=== PATIENT | female | born 1970 | race African-American/Black ===

== ENCOUNTER 2016-11-17 08:28 | Emergency (ER) | payer MEDICAID ==
[~2016-11-17] VITALS: Ht 160 cm; Wt 120.0 kg
[~2016-11-17 08:28] MED LIST: CYCL-36 PO; DIPH1TAB36 PO; IBUP-238 PO; RANI150 PO; ULTR50TA PO; anti-inflammatory; muscle relaxer
[2016-11-17 08:30] VITALS: BP 156/80; PULSE 84; RESP 16; TEMP 98.1; O2SAT 99
--- NOTE | 2016-11-17 08:42 | PD ---
HPI Chief Complaint: Back/ Neck Pain or Injury Time Seen by Provider: 08:42 Travel History International Travel<30 days: No Contact w/Intl Traveler<30days: No Traveled to known affect area: No History of Present Illness HPI 46-year-old female came to the emergency room with history of neck pain radiating down her left shoulder. Patient had a work related injury few months ago where she did physical therapy and was feeling better. She was doing fine and back to work. 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 Patient started hurting about 4 days ago and since then the pain has been increasing in severity. Today it is 8 out of 10. Moving her neck or arm hurts. No history of fever or chills. No history of photophobia. She did not reinjure her back or neck this time. She also describes the pain going down her mid back along the spine. She has been taking Tylenol at home without much relief. [facility] Past Medical History Narrative Medical List of her past medical, surgical, social and family history was reviewed from the nursing note. Medical History: Denies Significant Hx Diabetes: Yes (hx gestational, being tested for this now) Diminished Hearing: No GERD: Yes Immunizations Current: Yes ?: Not LMP: 11/12/2016 Tubal Ligation: Yes Past Surgical History Abdominal Surgery: Yes Section: Yes Gynecologic Surgery: Yes () Social History Alcohol Use: No Tobacco Use: No Substance Use: No Allergies-Medications (Allergen,Severity, Reaction): Coded Allergies: Aspirin (Verified Allergy, Intermediate, FLU SYMPTOMS, 11/17/16) Comments List of her allergies reviewed from the nursing note. Reported Meds & Prescriptions Reported Meds & Active Scripts Active Flexeril (Cyclobenzaprine HCl) 5 Mg Tab 5 Mg PO TID Lortab (Hydrocodone-Acetaminophen) 5-325 Mg Tab 1 Tab PO Q6H PRN Ibuprofen 600 Mg Tab 600 Mg PO Q6H PRN Narrative Medication List of her home medications reviewed from the nursing note Review of Systems Except as stated in HPI: all other systems reviewed are Neg Physical Exam Narrative GENERAL: Awake, alert, obese, mild distress SKIN: Focused skin assessment warm/dry. HEAD: Atraumatic. Normocephalic. EYES: Pupils equal and round. No scleral icterus. No injection or drainage. ENT: No nasal bleeding or discharge. Mucous membranes pink and moist. NECK: Trachea midline. No JVD. CARDIOVASCULAR: Regular rate and rhythm. No murmur appreciated. RESPIRATORY: No accessory muscle use. Clear to auscultation. Breath sounds equal bilaterally. GASTROINTESTINAL: Abdomen soft, non-tender, nondistended. Hepatic and splenic margins not palpable. MUSCULOSKELETAL: No obvious deformities. No clubbing. No cyanosis. No edema. Tenderness along the paraspinal area starting from neck down to the thoracic spine with some spasm. NEUROLOGICAL: Awake and alert. No obvious cranial nerve deficits. Motor grossly within normal limits. Normal speech. PSYCHIATRIC: Appropriate mood and affect; insight and judgment normal. Data Data Last Documented VS Vital Signs Date Time Temp Pulse Resp B/P Pulse Ox O2 Delivery O2 Flow Rate FiO2 11/17/16 08:30 98.1 84 16 156/80 99 Orders Orphenadrine Inj (Norflex Inj) (11/17/16 09:00) Ketorolac Inj (Toradol Inj) (11/17/16 09:00) Morphine Inj (Morphine Inj) (11/17/16 09:00) [facility] Medical Decision Making Medical Screen Exam Complete: Yes Emergency Medical Condition: Yes Medical Record Reviewed: Yes Differential Diagnosis Cervical radiculopathy, musculoskeletal pain, acute on chronic neck pain Narrative Course 9:37 AM since there has not been any recurrent injury I have not done any imaging studies. Patient was given IM Toradol, Norflex and morphine. I just went back and reassessed and she says her pain is slowly easing off and she feels better. She has called her son to come and pick her up. I will discharge her home. I have recommended her to go back to the physical therapist. Procedures EKG Prior to Arrival: No Diagnosis Primary Impression: Cervical radiculopathy Additional Impression: Cervical paraspinal muscle spasm Referrals: Primary Care Physician Additional Instructions: Please return to the ER if the condition worsens or any other new concerns. Otherwise follow-up with your primary care. He should get a referral back to your physical therapist since he need to go back to physical therapy in order to prevent this from worsening. Get bedrest. Apply cold compresses alternating with warm compresses on the affected part. He can eventually gravitated to words either cold or hot compress depending on which suits better for you. Take the medications as per the prescription direction. Do not drive or operate heavy machinery while on these medications since it'll make you groggy. Med/Other Pt SpecificInfo: Prescription(s) given Scripts Cyclobenzaprine (Flexeril)5 Mg Tab5 Mg PO TID #15 TAB Ref 0 Prov:Kentrell Duarte MD 11/17/16 Hydrocodone-Acetaminophen (Lortab)5-325 Mg Tab1 Tab PO Q6H PRN (PAIN) #10 TAB Ref 0 Prov:Kentrell Duarte MD 11/17/16 Ibuprofen 600 Mg [id number] Mg PO Q6H PRN (Pain/Inflammation) #40 TAB Ref 0 Prov:Kentrell Duarte MD 11/17/16 Disposition: 01 DISCHARGE HOME Condition: Stable Kentrell Duarte MD Nov 17, 2016 08:42
[2016-11-17] MEDS ORDERED: KETOROLAC TROMETHAMINE 60 MG/2 ML (IM) VIAL IM ONE (09:00)
[2016-11-17] MEDS ORDERED: ORPHENADRINE INJ 60 MG/2 ML AMP IM ONE (09:00)
[2016-11-17] MEDS ORDERED: MORPHINE SULFATE 8 MG/ML INJ IM ONE (09:00)
[2016-11-17] MEDS ORDERED: CYCL5TAB PO (09:40)
[2016-11-17] MEDS ORDERED: IBUP-232 PO (09:40)
[2016-11-17] MEDS ORDERED: HYDR-3533 PO (09:40)
== END 2016-11-17 10:01 | disposition home or self-care (01) ==
LOC: PHED 08:28
DX: M54.12 Radiculopathy, cervical region (principal); M62.830 Muscle spasm of back
CPT/HCPCS: 96372; 99284; J1885; J2270; J2360

== ENCOUNTER 2016-11-22 11:06 | Emergency (ER) | payer OTHER, MEDICAID ==
[~2016-11-22] VITALS: Ht 160 cm; Wt 119.5 kg
[~2016-11-22 11:06] MED LIST changes: -CYCL-36 PO; +CYCL5TAB PO; -DIPH1TAB36 PO; +HYDR-3533 PO; +IBUP-232 PO; -IBUP-238 PO; -RANI150 PO; -ULTR50TA PO; -anti-inflammatory; -muscle relaxer
[2016-11-22 11:25] VITALS: BP 149/81; PULSE 97; RESP 16; TEMP 98; O2SAT 98
--- NOTE | 2016-11-22 11:36 | PD ---
HPI Chief Complaint: Back/ Neck Pain or Injury Time Seen by Provider: 11:36 Travel History International Travel<30 days: No Contact w/Intl Traveler<30days: No Traveled to known affect area: No History of Present Illness HPI 46-year-old female presents the emergency department with recurrent right posterior shoulder pain, spasm, with radicular symptoms into the left arm and hand. Patient has been seen for this on November 14 and treated with Toradol, muscle relaxant, ibuprofen, and Lortab. 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 Pain is localized to the left upper back/lateral shoulder along the scapula. She describes numbness and tingling in the left hand and forearm which is worse at night. She denies weakness. Pain is currently a 9 out of 10. It is worse with movement and with palpation to the area. She states she is allergic to aspirin but has taken ibuprofen and Toradol the past. PFSH Past Medical History Medical History: Denies Significant Hx Diabetes: Yes (hx gestational, being tested for this now) Diminished Hearing: No GERD: Yes Immunizations Current: Yes Tetanus Vaccination: > 5 Years Influenza Vaccination: No ?: Not LMP: 1 week ago Tubal Ligation: Yes Past Surgical History Abdominal Surgery: Yes Section: Yes Gynecologic Surgery: Yes () Social History Alcohol Use: No Tobacco Use: No Substance Use: No Allergies-Medications (Allergen,Severity, Reaction): Coded Allergies: Aspirin (Verified Allergy, Intermediate, FLU SYMPTOMS, 11/22/16) Reported Meds & Prescriptions Reported Meds & Active Scripts Active Tramadol (Tramadol HCl) 50 Mg Tab 50 Mg PO Q6H PRN Prednisone 20 Mg Tab 20 Mg PO BID Orphenadrine ER 12 HR (Orphenadrine Citrate) 100 Mg Tab 100 Mg PO Q12HR Flexeril (Cyclobenzaprine HCl) 5 Mg Tab 5 Mg PO TID Lortab (Hydrocodone-Acetaminophen) 5-325 Mg Tab 1 Tab PO Q6H PRN Ibuprofen 600 Mg Tab 600 Mg PO Q6H PRN Review of Systems Except as stated in HPI: all other systems reviewed are Neg General / Constitutional: No: Fever Eyes: No: Visual changes HENT: No: Headaches Cardiovascular: No: Chest Pain or Discomfort Respiratory: No: Shortness of Breath Gastrointestinal: No: Abdominal Pain Genitourinary: No: Dysuria Musculoskeletal: Positive: Myalgias, Limited ROM, Pain (see history present illness) Skin: No Rash Neurologic: No: Weakness Psychiatric: No: Depression Endocrine: No: Polydipsia Hematologic/Lymphatic: No: Easy Bruising Physical Exam Narrative GENERAL: Moderately obese female in mild to moderate distress. SKIN: Warm and dry. Normal color. Normal turgor. No rash. HEAD: Atraumatic. Normocephalic. EYES: Pupils equal and round. No scleral icterus. No injection or drainage. ENT: No nasal bleeding or discharge. Mucous membranes pink and moist. Pharynx is normal. Airway is patent. NECK: Trachea midline. No bony tenderness or step-off. No significant soft tissue tenderness to the cervical spine or scalenes. CARDIOVASCULAR: Regular rate and rhythm. RESPIRATORY: No accessory muscle use. Clear to auscultation. Breath sounds equal bilaterally. GASTROINTESTINAL: Abdomen soft, non-tender, nondistended. Hepatic and splenic margins not palpable. MUSCULOSKELETAL: Extremities without clubbing, cyanosis, or edema. No obvious deformities. Patient has point tenderness with muscle spasm along the left lateral scapula with reproduction of her symptoms. Pain is worse with motion of the shoulder but not in the joint itself. Pain is localized to the soft tissues with palpable spasm noted. Patient has negative Tinel sign in both the left ulnar and carpal tunnel region. 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 Patient describes tingling and numbness in the left hand but has normal sensation by exam. Capillary refill is brisk in the left hand. NEUROLOGICAL: Awake and alert. No obvious cranial nerve deficits. Motor grossly within normal limits. Five out of 5 muscle strength in the arms and legs. Normal speech. PSYCHIATRIC: Appropriate mood and affect; insight and judgment normal. Data Data Last Documented VS Vital Signs Date Time Temp Pulse Resp B/P Pulse Ox O2 Delivery O2 Flow Rate FiO2 11/22/16 11:25 98.0 97 16 149/81 98 Orders Ketorolac Inj (Toradol Inj) (11/22/16 11:45) [facility] Medical Decision Making Medical Screen Exam Complete: Yes Emergency Medical Condition: Yes Medical Record Reviewed: Yes Differential Diagnosis Left shoulder spasm. Brachial plexus spasm. Numbness of the brachial plexus secondary to muscle spasm. Narrative Course Patient is medically stable at time of exam. Radiographic imaging is not felt warranted based on the patient's history and physical. I do feel this is a Worker's Comp. type issue with recurrent motion being a cause. Patient is given Toradol 60 mg IM. Patient will be placed on prednisone 20 mg twice a day 7 days. Patient is started on Norflex 100 mg twice a day 7 days. Patient is given tramadol 50 mg one every 6 hours when necessary pain. Patient is to follow-up with her primary care physician and hopefully be referred to physical therapy. Worker's Comp. forms is completed. Patient can return if worsening symptoms develop as needed. Diagnosis Primary Impression: Cervical radiculopathy Additional Impression: Muscle spasm of left shoulder area Referrals: Primary Care Physician Patient Instructions: General Instructions Additional Instructions: Radiographic imaging is not felt warranted based on the patient's history and physical. I do feel this is a Worker's Comp. type issue with recurrent motion being a cause. Patient is given Toradol 60 mg IM. Patient will be placed on prednisone 20 mg twice a day 7 days. Patient is started on Norflex 100 mg twice a day 7 days. Patient is given tramadol 50 mg one every 6 hours when necessary pain. Patient is to follow-up with her primary care physician and hopefully be referred to physical therapy. Worker's Comp. forms is completed. Patient can return if worsening symptoms develop as needed. Med/Other Pt SpecificInfo: Prescription(s) given Scripts Tramadol 50 Mg Tab50 Mg PO Q6H PRN (PAIN) #20 TAB Prov:Christiano Nova MD 11/22/16 Prednisone 20 Mg Tab20 Mg PO BID #14 TAB Prov:Christiano Nova MD 11/22/16 Orphenadrine ER 12 HR 100 Mg [id number] Mg PO Q12HR #20 TAB Prov:Christiano Nova MD 11/22/16 Disposition: 01 DISCHARGE HOME Condition: Stable Reinaldo Hauser Nov 22, 2016 11:36
[2016-11-22] MEDS ORDERED: KETOROLAC TROMETHAMINE 60 MG/2 ML (IM) VIAL IM ONE (11:45)
[2016-11-22] MEDS ORDERED: TRAM50TA PO (12:00)
[2016-11-22] MEDS ORDERED: PRED20 PO (12:00)
[2016-11-22] MEDS ORDERED: ORPH100T PO (12:00)
== END 2016-11-22 12:30 | disposition home or self-care (01) ==
LOC: PHEFT 11:06
DX: M54.12 Radiculopathy, cervical region (principal); M62.838 Other muscle spasm; X50.3XXA Overexertion from repetitive movements, initial encounter; Y93.E9 Activity, other interior property and clothing maintenance; Y99.0 Civilian activity done for income or pay
CPT/HCPCS: 96372; 99284; J1885

== ENCOUNTER 2016-12-28 17:20 | Emergency (ER) | payer MEDICAID, OTHER ==
[~2016-12-28] VITALS: Ht 160 cm; Wt 114.3 kg
[~2016-12-28 17:20] MED LIST changes: +ORPH100T PO; +PRED20 PO; +TRAM50TA PO
[2016-12-28 18:00] VITALS: BP 179/101; PULSE 112; RESP 16; TEMP 98.3; O2SAT 100
[2016-12-28] MEDS ORDERED: INSULIN HUMAN REGULAR 1,000 UNITS/10 ML VIAL SQ ONE (18:30)
[2016-12-28] MEDS ORDERED: SODIUM CHLOR 0.9% 1000 ML INJ 1,000 ML IV ONE ×2 (18:30→21:00)
[2016-12-28 18:43] LABS: POTASSIUM 4.2 MEQ/L (3.5-5.1)
[2016-12-28 18:46] LABS: BICARBONATE 23.2 MEQ/L (21.0-32.0)
[2016-12-28 18:48] LABS: AUTOMATED NEUTROPHIL # 6.4 TH/MM3 (1.8-7.7); BASOPHIL % 0.4 % (0.0-2.0); EOSINOPHIL # 0.1 TH/MM3 (0-0.4); EOSINOPHIL % 0.7 % (0.0-4.0); HEMATOCRIT 32.9 % (35.0-46.0); LYMPHOCYTE # 3.7 TH/MM3 (1.0-4.8); MEAN CELL VOLUME 63.6 FL (80.0-100.0); MEAN CORPUSCULAR HEMOGLOBIN 19.6 PG (27.0-34.0); MEAN CORPUSCULAR HGB CONC 30.8 % (32.0-36.0); MONO % 7.9 % (0.0-8.0); PLATELET COUNT 243 TH/MM3 (150-450); RED BLOOD COUNT 5.17 MIL/MM3 (4.00-5.30); RED CELL DISTRIBUTION WIDTH 17.4 % (11.6-17.2); WHITE BLOOD COUNT 11.1 TH/MM3 (4.0-11.0)
[2016-12-28 18:51] LABS: HEMO FLAGS AUTO DIFF
[2016-12-28 19:09] LABS: BETA-HYDROXYBUTYRATE 0.98 MMOL/L (0.00-0.39)
[2016-12-28 19:26] LABS: PLATELET ESTIMATE SMEAR NORMAL (NORMAL); PLATELET MORPHOLOGY NORMAL (NORMAL); SCAN/DIFF AUTO DIFF CONFIRMED
[2016-12-28 19:35] VITALS: BP 130/78; PULSE 95; RESP 16; O2SAT 100
--- NOTE | 2016-12-28 19:36 | RADRPT ---
EXAM DATE/TIME: 12/28/2016 18:57 [place] COMPARISON: No previous studies available for comparison. INDICATIONS : Flu symptoms for several days. High blood sugar today. MEDICAL HISTORY : None. SURGICAL HISTORY : None. ENCOUNTER: Initial ACUITY: 3 days PAIN SCORE: 0/10 LOCATION: Bilateral chest FINDINGS: PA and lateral views of the chest demonstrate the lungs to be symmetrically aerated without evidence of mass, infiltrate or effusion. The cardiomediastinal contours are unremarkable. Osseous structure s are intact. CONCLUSION: 1. No active disease. Mild scoliosis. Al Mendiola MD on December 28, 2016 at 19:34 Board Certified Radiologist. This report was verified electronically.
[2016-12-28 19:49] LABS: GLUCOSE,URINE 1000 OR GREATER mg/dL (NEG); KETONE, URINE 15 mg/dL (NEG); NITRITE,URINE NEG (NEG); PH, URINE 5.5 (5.0-8.5)
[2016-12-28 19:54] LABS: BLOOD, URINE TRACE (NEG)
[2016-12-28 19:57] LABS: URINE COLOR STRAW (YELLW/STRAW)
[2016-12-28 19:58] LABS: COMMENT (UR) CULT NOT INDICATED; CULTURE IF INDICATED CULT NOT INDICATED; RBC, URINE 0-3 /hpf (0-3); SQUAMOUS EPITHELIAL CELL URINE 0-5 /hpf (0-5)
[2016-12-28 20:30] LABS: BLOOD GAS VENOUS BASE EXCESS 0.9 mmol/L (-2-2); BLOOD GAS VENOUS HCO3 26 mmol/L (22-26); BLOOD GAS VENOUS O2 HGB SAT 29 % (70-76); BLOOD GAS VENOUS PCO2 46 mmHg (44-48); BLOOD GAS VENOUS PO2 24 mmHg (35-40); BLOOD GAS VENOUS pH 7.36 (7.360-7.400); TEMP CORR TO 98.6
[2016-12-28 20:31] LABS: CRITICAL VALUE YES; DRAW SITE IV; FIO2 21 %; OXYGEN DEVICE ROOM AIR; STAT YES
[2016-12-28] MEDS ORDERED: INSULIN HUMAN REGULAR 1,000 UNITS/10 ML VIAL IV PUSH ONE (21:00)
[2016-12-28 21:20] VITALS: BP 157/91; PULSE 94; RESP 16; O2SAT 100
--- NOTE | 2016-12-28 21:38 | PD ---
HPI Chief Complaint: Diabetic Time Seen by Provider: 18:06 Travel History International Travel<30 days: No Contact w/Intl Traveler<30days: No Traveled to known affect area: No History of Present Illness HPI Patient is a 46-year-old female who comes in complaining of generalized fatigue as well as dry mouth and frequent urination. She says that she thought she had the flu for the past week, but today she checked her sugar with her relative's glucometer and it read high. She denies any pain anywhere. She denies chest pain or shortness of breath. She denies abdominal pain. She has history of gestational diabetes, but otherwise has not been diagnosed with diabetes. She has no wounds. REPLACED BY [facility] Past Medical History Diabetes: Yes (hx gestational) Patient Takes Glucophage: No Diminished Hearing: No GERD: Yes Immunizations Current: Yes ?: Not Tubal Ligation: Yes Past Surgical History Abdominal Surgery: Yes Section: Yes Gynecologic Surgery: Yes () Social History Alcohol Use: No Tobacco Use: No Substance Use: No Allergies-Medications (Allergen,Severity, Reaction): Coded Allergies: aspirin (Unverified Allergy, Intermediate, FLU SYMPTOMS, 12/28/16) Reported Meds & Prescriptions Reported Meds & Active Scripts Active No Active Prescriptions or Reported Medications Review of Systems Except as stated in HPI: all other systems reviewed are Neg General / Constitutional: No: Fever, Chills HENT: No: Headaches, Lightheadedness Cardiovascular: No: Chest Pain or Discomfort Respiratory: No: Shortness of Breath Gastrointestinal: No: Nausea, Vomiting, Abdominal Pain Genitourinary: Positive: Frequency, No: Dysuria Musculoskeletal: No: Edema Skin: No Rash, No Change in Pigmentation Neurologic: No: Weakness, Dizziness Endocrine: Positive: Polyuria, Polydipsia Physical Exam Narrative GENERAL: Awake and alert, in no acute distress. SKIN: Focused skin assessment warm/dry. HEAD: Atraumatic. Normocephalic. EYES: Pupils equal and round. No scleral icterus. ENT: Mucous membranes pink and moist. NECK: Trachea midline. No JVD. CARDIOVASCULAR: Regular rate and rhythm. No murmur appreciated. RESPIRATORY: No accessory muscle use. Clear to auscultation. Breath sounds equal bilaterally. GASTROINTESTINAL: Abdomen soft, non-tender, nondistended. MUSCULOSKELETAL: No obvious deformities. No clubbing. No cyanosis. No edema. NEUROLOGICAL: Awake and alert. No obvious cranial nerve deficits. Motor grossly within normal limits. Normal speech. PSYCHIATRIC: Appropriate mood and affect; insight and judgment normal. Data Data Last Documented VS Vital Signs Date Time Temp Pulse Resp B/P (MAP) Pulse Ox O2 Delivery O2 Flow Rate FiO2 12/28/16 21:20 94 16 157/91 (113) 100 Room Air 12/28/16 19:30 100 12/28/16 18:00 98.3 Orders Orders Iv Access Insert/Monitor (12/28/16 18:19) Complete Blood Count With Diff (12/28/16 18:19) Basic Metabolic Panel (Bmp) (12/28/16 18:19) Beta Hydroxybutyrate (Acetone) (12/28/16 18:19) Urinalysis - C+S If Indicated (12/28/16 18:19) Ed Urine Pregnancytest Poc (12/28/16 18:19) Sodium Chlor 0.9% 1000 Ml Inj (Ns 1000 M (12/28/16 18:30) Insulin Human Regular Inj (Novolin R Inj (12/28/16 18:30) Electrocardiogram (12/28/16 ) Chest, Pa & Lat (12/28/16 ) Blood Gas Venous (Vbg) (12/28/16 19:53) Bedside Glucose GENEVIEVE.AC&HS (12/28/16 20:29) Sodium Chlor 0.9% 1000 Ml Inj (Ns 1000 M (12/28/16 21:00) Insulin Human Regular Inj (Novolin R Inj (12/28/16 21:00) Labs Laboratory Tests Test 12/28/16 18:10 12/28/16 18:40 12/28/16 20:20 White Blood Count 11.1 TH/MM3 Red Blood Count 5.17 MIL/MM3 Hemoglobin 10.1 GM/DL Hematocrit 32.9 % Mean Corpuscular Volume 63.6 FL Mean Corpuscular Hemoglobin 19.6 PG Mean Corpuscular Hemoglobin Concent 30.8 % Red Cell Distribution Width 17.4 % Platelet Count 243 TH/MM3 Mean Platelet Volume 9.1 FL Neutrophils (%) (Auto) 58.0 % Lymphocytes (%) (Auto) 33.0 % Monocytes (%) (Auto) 7.9 % Eosinophils (%) (Auto) 0.7 % Basophils (%) (Auto) 0.4 % Neutrophils # (Auto) 6.4 TH/MM3 Lymphocytes # (Auto) 3.7 TH/MM3 Monocytes # (Auto) 0.9 TH/MM3 Eosinophils # (Auto) 0.1 TH/MM3 Basophils # (Auto) 0.0 TH/MM3 CBC Comment AUTO DIFF Differential Comment AUTO DIFF CONFIRMED Platelet Estimate NORMAL Platelet Morphology Comment NORMAL Blood Urea Nitrogen 8 MG/DL Creatinine 1.10 MG/DL Random Glucose 534 MG/DL Calcium Level 10.5 MG/DL Sodium Level 131 MEQ/L Potassium Level 4.2 MEQ/L Chloride Level 97 MEQ/L Carbon Dioxide Level 23.2 MEQ/L Anion Gap 11 MEQ/L Estimat Glomerular Filtration Rate 65 ML/MIN B-Hydroxybutyrate 0.98 MMOL/L Urine Color STRAW Urine Turbidity CLEAR Urine pH 5.5 Urine Specific [place] GREATER THAN 1.035 Urine Protein NEG mg/dL Urine Glucose (UA) 1000 OR GREATER mg/dL Urine Ketones 15 mg/dL Urine Occult Blood TRACE Urine Nitrite NEG Urine Bilirubin NEG Urine Leukocyte Esterase NEG Urine RBC 0-3 /hpf Urine Squamous Epithelial Cells 0-5 /hpf Microscopic Urinalysis Comment CULT NOT INDICATED Blood Gas Puncture Site IV Blood Gas Patient Temperature 98.6 Venous Blood pH 7.36 Venous Blood Partial Pressure CO2 46 mmHg Venous Blood Partial Pressure O2 24 mmHg Venous Blood HCO3 26 mmol/L Venous Blood Oxygen Saturation 29 % Venous Blood Oxygen Content 4.0 Vol % Venous Blood Base Excess 0.9 mmol/L Oxygen Delivery Device ROOM AIR Blood Gas Inspired Oxygen 21 % [facility] Medical Decision Making Medical Screen Exam Complete: Yes Emergency Medical Condition: Yes Differential Diagnosis Diabetes versus DKA versus HHS Narrative Course Patient is a 46-year-old female who comes in because she found her blood sugar to be high. Exam shows no acute other allergies. IV established, labs sent. Labs show a blood glucose of 531. Anion gap is within normal limits. PH is 7.36. There is slight elevation in her beta hydroxybutyrate, however labs do not suggest that she is in DKA. She was given IV fluids as well as insulin. I discussed with her admission versus discharge. She would like to try and go home taking metformin. She has taken this in the past after she gave due to her gestational diabetes. She will follow-up with her doctor. Advised on how to change her diet. Advised to return to the ED as needed for any worsening symptoms. Diagnosis Primary Impression: New onset type 2 diabetes mellitus Patient Instructions: General Instructions, Type 2 Diabetes in Adults (ED) Additional Instructions: Take the metformin daily. Drink plenty of water. Follow-up with your doctor. Return to the ED as needed for any worsening symptoms. Scripts Metformin (Metformin) 500 Mg Tab 500 MG PO BIDPC for Blood Sugar Management, #60 TAB 0 Refills With meals Prov: Mary Lou Cerda MD 12/28/16 Disposition: 01 DISCHARGE HOME Condition: Stable Mary Lou Cerda MD Dec 28, 2016 21:38
[2016-12-28] MEDS ORDERED: METF500T PO (21:53)
[2016-12-28 22:40] VITALS: BP 138/82; PULSE 88; RESP 16; O2SAT 100
--- NOTE | 2016-12-29 13:40 | EKG ---
Date Performed: 12/28/2016 Time Performed: 18:33:15 PTAGE: 46 years EKG: SINUS TACHYCARDIA VOLTAGE CRITERIA FOR LVH ABNORMAL ECG NO PREVIOUS TRACING DOCTOR: Kirk Dugan Interpretating Date/Time 12/29/2016 13:38:07
== END 2016-12-28 23:23 | disposition home or self-care (01) ==
LOC: PHED 17:20
DX: E11.65 Type 2 diabetes mellitus with hyperglycemia (principal); K21.9 Gastro-esophageal reflux disease without esophagitis; R00.0 Tachycardia, unspecified
CPT/HCPCS: 71020; 80048; 81001; 82010; 82805; 84703; 85025; 93005; 96361; 96372; 96374; 99285; J1815; J7030

== ENCOUNTER 2016-12-30 09:03 | Emergency (ER) | payer MEDICAID, OTHER ==
[~2016-12-30] VITALS: Ht 162.6 cm; Wt 120.0 kg
[~2016-12-30 09:03] MED LIST changes: -CYCL5TAB PO; -HYDR-3533 PO; -IBUP-232 PO; +METF500T PO; -ORPH100T PO; -PRED20 PO; -TRAM50TA PO
[2016-12-30 09:05] VITALS: BP 132/82; PULSE 101; RESP 20; TEMP 98.5; O2SAT 100
[2016-12-30] MEDS ORDERED: SODIUM CHLOR 0.9% 1000 ML INJ 1,000 ML IV ONE ×2 (09:24→09:54)
[2016-12-30] MEDS ORDERED: ONDANSETRON HCL 4 MG/2 ML VIAL IV PUSH ONE (09:30)
[2016-12-30] MEDS ORDERED: KETOROLAC TROMETHAMINE 30 MG/ML (IVP) VIAL IV PUSH ONE (09:30)
[2016-12-30] MEDS ORDERED: MORPHINE SULFATE 4 MG/ML INJ IV PUSH ONE ×2 (09:30→12:15)
[2016-12-30] MEDS ORDERED: SODIUM CHLORIDE 0.9% FLUSH 10 ML FLUSH IVF PRN (09:30)
[2016-12-30 09:43] LABS: BLOOD GAS VENOUS HCO3 21 mmol/L (22-26); BLOOD GAS VENOUS O2 CONTENT 10.6 Vol % (9.0-17.0); BLOOD GAS VENOUS O2 HGB SAT 82 % (70-76); BLOOD GAS VENOUS PCO2 34 mmHg (44-48); BLOOD GAS VENOUS PO2 50 mmHg (35-40); BLOOD GAS VENOUS pH 7.41 (7.360-7.400); CRITICAL VALUE NO; TEMP CORR TO 98.6
[2016-12-30 09:44] LABS: DRAW SITE RN; FIO2 21 %; STAT YES
--- NOTE | 2016-12-30 09:55 | PD ---
HPI Chief Complaint: Diabetic Time Seen by Provider: 09:13 Travel History International Travel<30 days: No Contact w/Intl Traveler<30days: No Traveled to known affect area: No History of Present Illness HPI The patient is a 46-year-old [place] female who presents to the emergency department for hyperglycemia and generalized weakness. The patient states she was seen in emergency department several days ago for cervical radiculopathy has been present since September. Patient has neck pain and left aspect of her neck which radiates into the chest and down into the left arm. The patient was noted to have an elevated blood glucose at that time and was subsequently discharged home and metformin. The patient states she took metformin last night and then had an episode of nausea and vomiting. She now complains of some generalized weakness, not feeling well, and left-sided chest pain. The left-sided chest pain started after vomiting last night, is worse with movement of the left upper extremity and palpation. She denies any shortness of breath, does know some diaphoresis with the nausea and vomiting. The patient does have a history of recent onset diabetes, borderline hyperlipidemia, and early family medical history of coronary artery disease. The chest pain is moderate, achy, worse with movement, and alleviated at rest. The patient denies any company and abdominal pain or diarrhea. PFSH Past Medical History Cardiovascular Problems: Yes High Cholesterol: Yes Diabetes: Yes Patient Takes Glucophage: Yes (metformin ) Diminished Hearing: No GERD: Yes Immunizations Current: Yes ?: Not LMP: 12/24/16 Tubal Ligation: Yes Past Surgical History Abdominal Surgery: Yes Section: Yes Gynecologic Surgery: Yes () Social History Alcohol Use: No Tobacco Use: No Substance Use: No Allergies-Medications (Allergen,Severity, Reaction): Coded Allergies: aspirin (Unverified Allergy, Intermediate, FLU SYMPTOMS, 12/30/16) Reported Meds & Prescriptions Reported Meds & Active Scripts Active Metformin (Metformin HCl) 500 Mg Tab 500 Mg PO BIDPC With meals Review of Systems Except as stated in HPI: all other systems reviewed are Neg General / Constitutional: No: Fever HENT: No: Lightheadedness Cardiovascular: Positive: Chest Pain or Discomfort, Diaphoresis, No: Dyspnea on exertion Respiratory: Positive: Shortness of Breath Gastrointestinal: Positive: Nausea, Vomiting Musculoskeletal: Positive: Weakness, No: Edema Neurologic: Positive: Weakness, Dizziness Physical Exam Narrative GENERAL: Awake, alert, very pleasant 46-year-old female who appears her stated age and is in no acute respiratory distress. SKIN: Focused skin assessment warm/dry. HEAD: Atraumatic. Normocephalic. EYES: Pupils equal and round. No scleral icterus. No injection or drainage. ENT: No nasal bleeding or discharge. Mucous membranes pink and moist. NECK: Trachea midline. No JVD. CARDIOVASCULAR: Regular rate and rhythm. No murmur appreciated. Heart rate in the 90s. Palpation the left chest wall reproduces symptoms, movement of the left upper extremity reproduces symptoms. RESPIRATORY: No accessory muscle use. Clear to auscultation. Breath sounds equal bilaterally. GASTROINTESTINAL: Abdomen soft, non-tender, nondistended. No rebound tenderness. MUSCULOSKELETAL: No obvious deformities. No clubbing. No cyanosis. No edema. NEUROLOGICAL: Awake and alert. No obvious cranial nerve deficits. Motor grossly within normal limits. Normal speech. PSYCHIATRIC: Appropriate mood and affect; insight and judgment normal. Data Data Last Documented VS Vital Signs Date Time Temp Pulse Resp B/P (MAP) Pulse Ox O2 Delivery O2 Flow Rate FiO2 12/30/16 11:58 98.6 86 18 143/81 (101) 99 Room Air Orders Orders Electrocardiogram (12/30/16:24) Complete Blood Count With Diff (12/30/16:24) Comprehensive Metabolic Panel (12/30/16:24) Magnesium (Mg) (12/30/16:24) Beta Hydroxybutyrate (Acetone) (12/30/16:24) Urinalysis - C+S If Indicated (12/30/16:24) Chest, Single Ap (12/30/16:24) Blood Gas Venous (Vbg) (12/30/16:24) Blood Glucose (12/30/16:24) Blood Glucose (12/30/16 10:24) Ecg Monitoring (12/30/16:24) Iv Access Insert/Monitor (12/30/16:24) Oximetry (12/30/16:24) NPO (12/30/16 09:24) Sodium Chlor 0.9% 1000 Ml Inj (Ns 1000 M (12/30/16 09:24) Sodium Chlor 0.9% 1000 Ml Inj (Ns 1000 M (12/30/16 09:54) Sodium Chloride 0.9% Flush (Ns Flush) (12/30/16 09:30) Troponin I (12/30/16 09:24) Lipase (12/30/16 09:24) Morphine Inj (Morphine Inj) (12/30/16 09:30) Ketorolac Inj (Toradol Inj) (12/30/16 09:30) Ondansetron Inj (Zofran Inj) (12/30/16 09:30) D-Dimer (12/30/16 10:00) Troponin I (12/30/16 12:47) Morphine Inj (Morphine Inj) (12/30/16 12:15) Labs Laboratory Tests Test 12/30/16 09:28 12/30/16 09:47 12/30/16 10:09 12/30/16 11:05 Blood Gas Puncture Site RN Blood Gas Patient Temperature 98.6 Venous Blood pH 7.41 Venous Blood Partial Pressure CO2 34 mmHg Venous Blood Partial Pressure O2 50 mmHg Venous Blood HCO3 21 mmol/L Venous Blood Oxygen Saturation 82 % Venous Blood Oxygen Content 10.6 Vol % Venous Blood Base Excess -3.0 mmol/L Blood Gas Inspired Oxygen 21 % White Blood Count 9.7 TH/MM3 Red Blood Count 4.87 MIL/MM3 Hemoglobin 9.6 GM/DL Hematocrit 31.6 % Mean Corpuscular Volume 64.8 FL Mean Corpuscular Hemoglobin 19.8 PG Mean Corpuscular Hemoglobin Concent 30.5 % Red Cell Distribution Width 18.8 % Platelet Count 257 TH/MM3 Mean Platelet Volume 9.5 FL Neutrophils (%) (Auto) 60.5 % Lymphocytes (%) (Auto) 33.0 % Monocytes (%) (Auto) 4.9 % Eosinophils (%) (Auto) 1.3 % Basophils (%) (Auto) 0.3 % Neutrophils # (Auto) 5.9 TH/MM3 Lymphocytes # (Auto) 3.2 TH/MM3 Monocytes # (Auto) 0.5 TH/MM3 Eosinophils # (Auto) 0.1 TH/MM3 Basophils # (Auto) 0.0 TH/MM3 CBC Comment DIFF FINAL Differential Comment Blood Urea Nitrogen 8 MG/DL Creatinine 0.84 MG/DL Random Glucose 306 MG/DL Total Protein 7.7 GM/DL Albumin 3.2 GM/DL Calcium Level 9.4 MG/DL Magnesium Level 1.6 MG/DL Alkaline Phosphatase 103 U/L Aspartate Amino Transf (AST/SGOT) 11 U/L Alanine Aminotransferase (ALT/SGPT) 16 U/L Total Bilirubin 0.3 MG/DL Sodium Level 133 MEQ/L Potassium Level 3.8 MEQ/L Chloride Level 101 MEQ/L Carbon Dioxide Level 21.2 MEQ/L Anion Gap 11 MEQ/L Estimat Glomerular Filtration Rate 89 ML/MIN Troponin I LESS THAN 0.02 NG/ML Lipase 108 U/L B-Hydroxybutyrate 2.59 MMOL/L D-Dimer Quantitative (PE/DVT) 0.47 MG/L FEU Urine Color LIGHT-YELLOW Urine Turbidity CLEAR Urine pH 5.5 Urine Specific [place] 1.024 Urine Protein NEG mg/dL Urine Glucose (UA) 1000 mg/dL Urine Ketones 150 mg/dL Urine Occult Blood NEG Urine Nitrite NEG Urine Bilirubin NEG Urine Urobilinogen LESS THAN 2.0 MG/DL Urine Leukocyte Esterase NEG Urine RBC LESS THAN 1 /hpf Urine WBC 1 /hpf Urine Squamous Epithelial Cells 1 /hpf Microscopic Urinalysis Comment CULT NOT INDICATED Test 12/30/16 13:00 Troponin I LESS THAN 0.02 NG/ML MDM Medical Decision Making Medical Screen Exam Complete: Yes Emergency Medical Condition: Yes Medical Record Reviewed: Yes Interpretation(s) EKG reveals normal sinus rhythm with a rate of 99. No ischemic changes noted. Laboratory Tests Test 12/30/16 09:28 12/30/16 09:47 12/30/16 10:09 12/30/16 11:05 Blood Gas Puncture Site RN Blood Gas Patient Temperature 98.6 Venous Blood pH 7.41 Venous Blood Partial Pressure CO2 34 mmHg Venous Blood Partial Pressure O2 50 mmHg Venous Blood HCO3 21 mmol/L Venous Blood Oxygen Saturation 82 % Venous Blood Oxygen Content 10.6 Vol % Venous Blood Base Excess -3.0 mmol/L Blood Gas Inspired Oxygen 21 % White Blood Count 9.7 TH/MM3 Red Blood Count 4.87 MIL/MM3 Hemoglobin 9.6 GM/DL Hematocrit 31.6 % Mean Corpuscular Volume 64.8 FL Mean Corpuscular Hemoglobin 19.8 PG Mean Corpuscular Hemoglobin Concent 30.5 % Red Cell Distribution Width 18.8 % Platelet Count 257 TH/MM3 Mean Platelet Volume 9.5 FL Neutrophils (%) (Auto) 60.5 % Lymphocytes (%) (Auto) 33.0 % Monocytes (%) (Auto) 4.9 % Eosinophils (%) (Auto) 1.3 % Basophils (%) (Auto) 0.3 % Neutrophils # (Auto) 5.9 TH/MM3 Lymphocytes # (Auto) 3.2 TH/MM3 Monocytes # (Auto) 0.5 TH/MM3 Eosinophils # (Auto) 0.1 TH/MM3 Basophils # (Auto) 0.0 TH/MM3 CBC Comment DIFF FINAL Differential Comment Blood Urea Nitrogen 8 MG/DL Creatinine 0.84 MG/DL Random Glucose 306 MG/DL Total Protein 7.7 GM/DL Albumin 3.2 GM/DL Calcium Level 9.4 MG/DL Magnesium Level 1.6 MG/DL Alkaline Phosphatase 103 U/L Aspartate Amino Transf (AST/SGOT) 11 U/L Alanine Aminotransferase (ALT/SGPT) 16 U/L Total Bilirubin 0.3 MG/DL Sodium Level 133 MEQ/L Potassium Level 3.8 MEQ/L Chloride Level 101 MEQ/L Carbon Dioxide Level 21.2 MEQ/L Anion Gap 11 MEQ/L Estimat Glomerular Filtration Rate 89 ML/MIN Troponin I LESS THAN 0.02 NG/ML Lipase 108 U/L B-Hydroxybutyrate 2.59 MMOL/L D-Dimer Quantitative (PE/DVT) 0.47 MG/L FEU Urine Color LIGHT-YELLOW Urine Turbidity CLEAR Urine pH 5.5 Urine Specific [place] 1.024 Urine Protein NEG mg/dL Urine Glucose (UA) 1000 mg/dL Urine Ketones 150 mg/dL Urine Occult Blood NEG Urine Nitrite NEG Urine Bilirubin NEG Urine Urobilinogen LESS THAN 2.0 MG/DL Urine Leukocyte Esterase NEG Urine RBC LESS THAN 1 /hpf Urine WBC 1 /hpf Urine Squamous Epithelial Cells 1 /hpf Microscopic Urinalysis Comment CULT NOT INDICATED Test 12/30/16 13:00 Troponin I LESS THAN 0.02 NG/ML Differential Diagnosis Differential diagnosis includes hyperglycemia, dehydration, electrolyte abnormality, acute coronary syndrome, musculoskeletal pain, cervical radiculopathy, pulmonary embolism, pleural effusion, pneumonia. Narrative Course IV was established, labs are drawn and sent, and the patient was placed on cardiac telemetry monitoring and continuous pulse oximetry monitoring. EKG was ordered and interpreted. Chest x-ray was obtained. The patient was administered 2 L of IV fluids, morphine, Toradol, and Zofran. VBG was obtained , pH was normal at 7.410, no evidence of DKA. The patient's d-dimer is normal at 0.47, therefore, no indication for CT pulmonary angiogram. Patient's troponin is negative at less than 0.02. Initial glucose was 306, anion gap was normal, beta hydroxy was slightly elevated at 2.86, most likely secondary to dehydration. No evidence of DKA. The repeat troponin was less than 0.02. The patient's chest pain is reproducible with movement and palpation, most likely musculoskeletal in origin, she also has a history of cervical radiculopathy, will be treated with anti-inflammatories and muscle relaxers. Repeat blood sugars revealed a glucose less than 300, patient is advised to follow-up with her primary physician for outpatient hemoglobin A1c and monitoring of her blood sugars. The patient agrees and understands. Diagnosis Primary Impression: Hyperglycemia Additional Impression: Chest wall pain Patient Instructions: General Instructions Additional Instructions: Medications as directed. Monitor blood sugars. Please provide the patient a copy of her labs and chest x-ray results at discharge. Follow-up with your primary physician for outpatient hemoglobin A1c and monitoring of blood sugars. Med/Other Pt SpecificInfo: Prescription(s) given Scripts Hydrocodone-Acetaminophen ([place]) 5-325 mg Tab 1 TAB PO Q6H Y for PAIN, #12 TAB 0 Refills Prov: Zia Reyes MD 12/30/16 Cyclobenzaprine (Flexeril) 10 Mg Tab 10 MG PO TID for Muscle Spasm, #30 TAB 0 Refills Prov: Zia Reyes MD 12/30/16 Ibuprofen (Ibuprofen) 600 Mg Tab 600 MG PO Q6H Y for Pain/Inflammation, #20 TAB 0 Refills Prov: Zia Reyes MD 12/30/16 Disposition: 01 DISCHARGE HOME Condition: Stable Zia Reyes MD Dec 30, 2016 09:55
[2016-12-30 10:05] LABS: AUTOMATED NEUTROPHIL # 5.9 TH/MM3 (1.8-7.7); BASOPHIL % 0.3 % (0.0-2.0); EOSINOPHIL # 0.1 TH/MM3 (0-0.4); EOSINOPHIL % 1.3 % (0.0-4.0); HEMATOCRIT 31.6 % (35.0-46.0); HEMO FLAGS DIFF FINAL; LYMPHOCYTE # 3.2 TH/MM3 (1.0-4.8); MEAN CELL VOLUME 64.8 FL (80.0-100.0); MEAN CORPUSCULAR HEMOGLOBIN 19.8 PG (27.0-34.0); MEAN CORPUSCULAR HGB CONC 30.5 % (32.0-36.0); MONO % 4.9 % (0.0-8.0); NEUT % 60.5 % (16.0-70.0); PLATELET COUNT 257 TH/MM3 (150-450); RED BLOOD COUNT 4.87 MIL/MM3 (4.00-5.30); RED CELL DISTRIBUTION WIDTH 18.8 % (11.6-17.2); WHITE BLOOD COUNT 9.7 TH/MM3 (4.0-11.0)
[2016-12-30 10:21] LABS: ANION GAP 11 MEQ/L (5-15); AST (GOT) 11 U/L (15-37); BICARBONATE 21.2 MEQ/L (21.0-32.0); BLOOD UREA NITROGEN 8 MG/DL (7-18); CHLORIDE 101 MEQ/L (98-107); GLOMERULAR FILTRATION RATE 89 ML/MIN (>89); MAGNESIUM 1.6 MG/DL (1.5-2.5); POTASSIUM 3.8 MEQ/L (3.5-5.1); SODIUM (NA) 133 MEQ/L (136-145)
[2016-12-30 10:28] LABS: ALKALINE PHOSPHATASE 103 U/L (45-117); ALT (GPT) 16 U/L (10-53); BETA-HYDROXYBUTYRATE 2.59 MMOL/L (0.00-0.39); TOTAL BILIRUBIN ADULT 0.3 MG/DL (0.2-1.0)
--- NOTE | 2016-12-30 10:46 | RADRPT ---
EXAM DATE/TIME: 12/30/2016 09:30 [facility] COMPARISON: CHEST PA & LAT, December 28, 2016, 18:57. INDICATIONS : Chest pain, vomiting, shortness of breath. MEDICAL HISTORY : Diabetes mellitus type II. SURGICAL HISTORY : Hysterectomy. section. ENCOUNTER: Initial ACUITY: 2 days PAIN SCORE: 8/10 LOCATION: Left chest FINDINGS: A single view of the chest demonstrates the lungs to be symmetrically aerated without evidence of mas s, infiltrate or effusion. The cardiomediastinal contours are unremarkable. Osseous structures are intact. CONCLUSION: No acute disease. Fran Diamond MD on December 30, 2016 at 10:43 Board Certified Radiologist. This report was verified electronically.
[2016-12-30 11:16] LABS: BLOOD, URINE NEG (NEG); GLUCOSE,URINE 1000 mg/dL (NEG); KETONE, URINE 150 mg/dL (NEG); NITRITE,URINE NEG (NEG); PH, URINE 5.5 (5.0-8.5); SQUAMOUS EPITHELIAL CELL URINE 1 /hpf (0-5); URINE COLOR LIGHT-YELLOW (YELLW/STRAW)
[2016-12-30 11:17] LABS: COMMENT (UR) CULT NOT INDICATED; CULTURE IF INDICATED CULT NOT INDICATED
[2016-12-30 11:58] VITALS: BP 143/81; PULSE 86; RESP 18; TEMP 98.6; O2SAT 99
[2016-12-30] MEDS ORDERED: CYCL1TAB29 PO (14:07)
[2016-12-30] MEDS ORDERED: IBUP-232 PO (14:07)
[2016-12-30] MEDS ORDERED: NORC5TAB PO (14:07)
--- NOTE | 2016-12-31 12:03 | EKG ---
Date Performed: 12/30/2016 Time Performed: 09:37:07 PTAGE: 46 years EKG: Sinus rhythm ST ABNORMALITY, CONSIDER EARLY REPOLARIZATION PREVIOUS TRACING : 12/28/2016 18.33 Compared to previous tracing, possible early repolari zation abnormality is now evident, nonspecific inferior T wave abnormality has resolved. DOCTOR: Maninder Morales Interpretating Date/Time 12/31/2016 12:01:53
== END 2016-12-30 15:23 | disposition home or self-care (01) ==
LOC: NEPE 09:03
DX: E11.65 Type 2 diabetes mellitus with hyperglycemia (principal); M54.12 Radiculopathy, cervical region; R07.89 Other chest pain; Z79.84 Long term (current) use of oral hypoglycemic drugs
CPT/HCPCS: 71010; 80053; 81001; 82010; 82805; 83690; 83735; 84484; 85025; 85379; 93005; 96374; 96375; 96376; 99285; J1885; J2270; J2405; J7030